=== PATIENT | female | born 2000 | race Caucasian/White ===

== ENCOUNTER 2023-11-27 10:29 | Emergency (ER) | payer OTHER ==
[~2023-11-27] VITALS: Ht 157.5 cm; Wt 49.0 kg
[2023-11-27 11:00] VITALS: BP 101/76; TEMP 98.6; O2SAT 99
== END 2023-11-27 11:03 ==
LOC: ER 10:32
DX: R51.9 Headache, unspecified (principal); R07.81 Pleurodynia; M25.552 Pain in left hip; V89.2XXA Person injured in unspecified motor-vehicle accident, traffic, initial encounter; Y93.89 Activity, other specified; Y92.89 Other specified places as the place of occurrence of the external cause; Y99.8 Other external cause status